=== PATIENT | male | born 1995 | race Two or more races ===

== ENCOUNTER 2021-09-01 02:23 | Emergency (ER) | payer MEDICAID ==
[~2021-09-01] VITALS: Ht 165.1 cm; Wt 104.3 kg
[2021-09-01 02:30] VITALS: BP 158/83
[2021-09-01] MEDS ORDERED: diphenhdrAMINE HCL 25 MG CAP PO ONE (03:30)
[2021-09-01] MEDS ORDERED: methylPREDNISolone SOD SUCC 125 MG/2 ML VL IM ONE (03:30)
[2021-09-01] MEDS ORDERED: PRED20TA2 PO (03:49)
[2021-09-01] MEDS ORDERED: DIPH25CA66 PO (03:49)
== END 2021-09-01 03:59 | disposition home or self-care (01) ==
LOC: ER 02:23
DX: L50.9 Urticaria, unspecified (principal); Z79.899 Other long term (current) drug therapy
CPT/HCPCS: 96372; 99283; J2930

== ENCOUNTER 2021-10-11 01:35 | Emergency (ER) | payer MEDICAID ==
[~2021-10-11] VITALS: Ht 165.1 cm; Wt 148.3 kg
[~2021-10-11 01:35] MED LIST: DIPH25CA66 PO; PRED20TA2 PO
[2021-10-11 06:31] VITALS: BP 148/84
== END 2021-10-11 06:37 | disposition home or self-care (01) ==
LOC: ER 01:35
DX: L02.31 Cutaneous abscess of buttock (principal)
CPT/HCPCS: 69200